=== PATIENT | male | born 1980 | race Caucasian/White ===

== ENCOUNTER 2019-01-31 19:21 | Emergency (ER) | payer MEDICARE, MEDICAID ==
[2019-01-31] MEDS ORDERED: LIDOCAINE 1% W/EPI 1:200,000 MPF 30ML SQ ONE (19:54)
--- NOTE | 2019-01-31 20:21 | Emergency Department Record ---
History of Present Illness - General Chief Complaint: Laceration(s) Stated Complaint: LAC L PALM Time Seen by Provider: 01/31/19 19:53 Source: Patient Mode of Arrival: Ambulatory Limitations: No limitations - History of Present Illness Initial Commments: The patient is here due to a L hand lac which occurred an hour ago. The patient cut the L palm with a knife at home. He denies any numbness or tingling and his Td is UTD. Onset/Timin -: Hour(s) Place: Home Context: Accidental Associated Symptoms: None Treatments Prior to Arrival: Bandage - [place] Coma Scale Eye Response: (4) Open spontaneously Motor Response: (6) Obeys commands Verbal Response: (5) Oriented [place] Total: 15 - Related Data Patient Tetanus UTD (within 5 yrs): Yes Home Medications Medication Instructions Recorded Confirmed Last Taken Albuterol Sulfate [Ventolin Hfa] 1 - 2 puff IH .EVERY 4-6 HOURS PRN 01/31/1901/31/19 Amitriptyline HCl [Elavil] 25 mg PO QHS 01/31/19 01/31/19 01/30/19 Escitalopram Oxalate [Lexapro] 10 mg PO DAILY 01/31/19 01/31/19 01/31/19 Hydrocodone/Acetaminophen [[place] 1 each PO ASDIR 01/31/19 01/31/19 01/31/19 10-325 Tablet] Mometasone/Formoterol [Dulera 100 1 puff INH ASDIR 01/31/19 01/31/19 01/31/19 Mcg/5 Mcg Inhaler] Morphine Sulfate 30 mg PO TID 01/31/19 01/31/19 01/31/19 Morphine Sulfate [Msir] 15 mg PO TID 01/31/19 01/31/19 01/31/19 Scopolamine 1 each TD ASDIR 01/31/19 01/31/19 01/31/19 Previous Rx's Medication Instructions Recorded Cephalexin [Keflex] 500 mg PO TID #15 cap 01/31/19 Allergies Allergy/AdvReac Type Severity Reaction Status Date / Time No Known Drug Allergies Allergy Verified 01/31/19 19:44 Travel Screening - Travel/Exposure Within Last 30 Days Have you traveled within the last 30 days?: No - Travel/Exposure Within Last Year Have you traveled outside the [place] in the last year?: No - Additonal Travel Details Have you been exposed to anyone with a communicable illness?: No - Travel Symptoms Symptom Screening: None Review of Systems Constitutional: Denies: Chills, Fever Past Medical History - SOCIAL HISTORY Smoking Status: Current every day smoker Alcohol Use: None Drug Use: Heavy Drug Use Detail:: Marijuana - RESPIRATORY Hx Respiratory Disorders: Yes Hx COPD: Yes - CARDIOVASCULAR Hx Cardio Disorders: Yes Hx Vascular Disease: Yes - NEURO Hx Neuro Disorders: Yes Comment:: chronic nerve pain syndrome - GI Hx GI Disorders: No - Hx Genitourinary Disorders: No - ENDOCRINE Hx Endocrine Disorders: No - MUSCULOSKELETAL Hx Musculoskeletal Disorders: No - PSYCH Hx Psych Problems: Yes Hx Depression: Yes - HEMATOLOGY/ONCOLOGY Hx Hematology/Oncology Disorders: Yes Hx Cancer: Yes Comment:: in remission Family Medical History Any Significant Family History?: No Physical Exam - General General Appearance: Alert, Oriented x3, Cooperative, No acute distress - Head Head exam: Atraumatic, Normal inspection - Eye Eye exam: Normal appearance, PERRL - Extremities Extremities exam: negative: Normal inspection (There is a 3.5 cm lac to the L Thenar area. The L thumb has normal tendon function and normal sensation distally. ) Course Vital Signs 01/31/19 01/31/19 19:39 19:50 Temperature 98.7 F 98.7 F Pulse Rate 69 Pulse Rate [ 69 Left] Respiratory 16 16 Rate Blood Pressure 132/89 Blood Pressure 132/89 [Right Arm] Pulse Ox 98 98 - Reevaluation(s) Reevaluation #1: Procedure note: The L hand lac was anesth. with 2 cc's Lido 1% with Epi. The wound was prepped with betadine and lavaged with sterile saline. The wound was explored and was superficial and not down into the muscle. The lac was then closed with7 4.0 nylon sutures. There were no complications. 01/31/19 20:18 Disposition Disposition: Discharge Clinical Impression: Laceration of hand Qualifiers: Foreign body presence: without foreign body Laterality: left Disposition: Home, Self-Care Condition: (2) Stable Instructions: Laceration (ED) Additional Instructions: Keep dry for 2 days then no soaking or swimming. Return to the ER for any signs of infection and have the sutures removed in 10 days. Take the Keflex as directed. Prescriptions: Cephalexin [Keflex] 500 mg PO TID #15 cap Forms: Patient Portal Access Time of Disposition: 20:21 Quality - Quality Measures Quality Measures: N/A - Blood Pressure Screening View Details: Yes Does Patient Have Any of the Following: No Blood Pressure Classification: Pre-Hypertensive BP Reading Systolic Measurement: 132 Diastolic Measurement: 89 Screening for High Blood Pressure: < Pre-Hypertensive BP, F/U Documented > [ G8950] Pre-Hypertensive Follow-up Interventions: Referral to alternative/primary care provider.
--- NOTE | 2019-01-31 20:49 | Emergency Department Record ---
History of Present Illness - General Chief Complaint: Laceration(s) Stated Complaint: LAC L PALM Time Seen by Provider: 01/31/19 19:53 Source: Patient Mode of Arrival: Ambulatory Limitations: No limitations - History of Present Illness Onset/Timin -: Hour(s) Place: Home Context: Accidental Associated Symptoms: None Treatments Prior to Arrival: Bandage - [place] Coma Scale Eye Response: (4) Open spontaneously Motor Response: (6) Obeys commands Verbal Response: (5) Oriented [place] Total: 15 - Related Data Patient Tetanus UTD (within 5 yrs): Yes Home Medications Medication Instructions Recorded Confirmed Last Taken Albuterol Sulfate [Ventolin Hfa] 1 - 2 puff IH .EVERY 4-6 HOURS PRN 01/31/1901/31/19 Amitriptyline HCl [Elavil] 25 mg PO QHS 01/31/19 01/31/19 01/30/19 Escitalopram Oxalate [Lexapro] 10 mg PO DAILY 01/31/19 01/31/19 01/31/19 Hydrocodone/Acetaminophen [[place] 1 each PO ASDIR 01/31/19 01/31/19 01/31/19 10-325 Tablet] Mometasone/Formoterol [Dulera 100 1 puff INH ASDIR 01/31/19 01/31/19 01/31/19 Mcg/5 Mcg Inhaler] Morphine Sulfate 30 mg PO TID 01/31/19 01/31/19 01/31/19 Morphine Sulfate [Msir] 15 mg PO TID 01/31/19 01/31/19 01/31/19 Scopolamine 1 each TD ASDIR 01/31/19 01/31/19 01/31/19 Previous Rx's Medication Instructions Recorded Cephalexin [Keflex] 500 mg PO TID #15 cap 01/31/19 Allergies Allergy/AdvReac Type Severity Reaction Status Date / Time No Known Drug Allergies Allergy Verified 01/31/19 19:44 Travel Screening - Travel/Exposure Within Last 30 Days Have you traveled within the last 30 days?: No - Travel/Exposure Within Last Year Have you traveled outside the [place] in the last year?: No - Additonal Travel Details Have you been exposed to anyone with a communicable illness?: No - Travel Symptoms Symptom Screening: None Review of Systems Constitutional: Denies: Chills, Fever Past Medical History - SOCIAL HISTORY Smoking Status: Current every day smoker Alcohol Use: None Drug Use: Heavy Drug Use Detail:: Marijuana - RESPIRATORY Hx Respiratory Disorders: Yes Hx COPD: Yes - CARDIOVASCULAR Hx Cardio Disorders: Yes Hx Vascular Disease: Yes - NEURO Hx Neuro Disorders: Yes Comment:: chronic nerve pain syndrome - GI Hx GI Disorders: No - Hx Genitourinary Disorders: No - ENDOCRINE Hx Endocrine Disorders: No - MUSCULOSKELETAL Hx Musculoskeletal Disorders: No - PSYCH Hx Psych Problems: Yes Hx Depression: Yes - HEMATOLOGY/ONCOLOGY Hx Hematology/Oncology Disorders: Yes Hx Cancer: Yes Comment:: in remission Family Medical History Any Significant Family History?: No Physical Exam - General Limitations: No limitations - Extremities Image of Hand: 1 - Area of linear laceration. Course Vital Signs 01/31/19 01/31/19 19:39 19:50 Temperature 98.7 F 98.7 F Pulse Rate 69 Pulse Rate [ 69 Left] Respiratory 16 16 Rate Blood Pressure 132/89 Blood Pressure 132/89 [Right Arm] Pulse Ox 98 98 Disposition Clinical Impression: Laceration of hand Qualifiers: Foreign body presence: without foreign body Laterality: left Disposition: Home, Self-Care Condition: (2) Stable Instructions: Laceration (ED) Additional Instructions: Keep dry for 2 days then no soaking or swimming. Return to the ER for any signs of infection and have the sutures removed in 10 days. Take the Keflex as directed. Prescriptions: Cephalexin [Keflex] 500 mg PO TID #15 cap Forms: Patient Portal Access Quality - Quality Measures Quality Measures: N/A - Blood Pressure Screening View Details: Yes Does Patient Have Any of the Following: No Blood Pressure Classification: Pre-Hypertensive BP Reading Systolic Measurement: 132 Diastolic Measurement: 89 Screening for High Blood Pressure: < Pre-Hypertensive BP, F/U Documented > [ G8950] Pre-Hypertensive Follow-up Interventions: Referral to alternative/primary care provider.
== END 2019-01-31 20:49 | disposition home or self-care (01) ==
LOC: ER 19:21
DX: S61.412A Laceration without foreign body of left hand, initial encounter (principal); W26.0XXA Contact with knife, initial encounter; Y92.009 Unspecified place in unspecified non-institutional (private) residence as the place of occurrence of the external cause; J44.9 Chronic obstructive pulmonary disease, unspecified; F17.210 Nicotine dependence, cigarettes, uncomplicated
CPT/HCPCS: 99283